=== PATIENT | male | born 1955 | race Caucasian/White ===

== ENCOUNTER 2017-08-29 06:34 | Day surgery (SDC) | payer SELFPAY ==
[~2017-08-29] VITALS: Ht 190.5 cm; Wt 141.4 kg
[~2017-08-29 06:34] MED LIST: BENADRYL50 MG PO; CRANBERRY 6,001 EACH PO; GARLIC400 M1 PO; HEPARIN LO100 UNIT/7 IV; MAXIPIME1 GM IM; MEN'S MULTI-VI1 EACH PO; NOVOLIN,HU100 UNITS/ SC; TURMERIC500 M2 PO; VANCOMYCIN HCL1 GM IV; VITAMIN C500 M1 PO; VITAMIN D35000 UNIT PO; VITAMIN E400 UNIT PO
[2017-08-29 07:12] LABS: HEMATOCRIT 31.5 % (38.0-50.0); HEMOGLOBIN 10.2 G/DL (12.5-16.6); MCV 92.1 FL (86-99)
[2017-08-29 07:18] VITALS: BP 178/92
[2017-08-29 07:37] LABS: CHLORIDE 98 MEQ/L (99-109); CREATININE 3.1 MG/DL (0.6-1.3); GFR ESTIMATE (CALCULATED) 22 mL/min/ (58.99-99999); GLUCOSE 135 mg/dL (70-99); POTASSIUM 3.6 MEQ/L (3.7-5.4); SODIUM 141 MEQ/L (136-147); UREA NITROGEN (BUN) 34 mg/dL (9-23)
[2017-08-29 11:25] VITALS: BP 141/72
[2017-08-29 12:20] VITALS: BP 136/70
== END 2017-08-29 12:20 | disposition home or self-care (01) ==
LOC: SDC 06:34
PROVIDERS: Ophthalmology
DX: E11.3532 Type 2 diabetes mellitus with proliferative diabetic retinopathy with traction retinal detachment not involving the macula, left eye (principal); H43.12 Vitreous hemorrhage, left eye; E11.42 Type 2 diabetes mellitus with diabetic polyneuropathy; I12.0 Hypertensive chronic kidney disease with stage 5 chronic kidney disease or end stage renal disease; E11.22 Type 2 diabetes mellitus with diabetic chronic kidney disease; N18.6 End stage renal disease; Z99.2 Dependence on renal dialysis; E66.9 Obesity, unspecified; Z68.39 Body mass index [BMI] 39.0-39.9, adult; D63.8 Anemia in other chronic diseases classified elsewhere; E78.5 Hyperlipidemia, unspecified; Z79.4 Long term (current) use of insulin
CPT/HCPCS: 80048; 82948; 85014; 85018; 87641; J0690; J0713; J1100; J2250; J2405; J3010; J3301